=== PATIENT | female | born 1980 | race Caucasian/White ===

== ENCOUNTER 2018-07-08 15:45 | Emergency (ER) | payer OTHER ==
[~2018-07-08] VITALS: Ht 175.3 cm; Wt 108.9 kg
== END 2018-07-08 21:51 | disposition home or self-care (01) ==
LOC: ER 15:45
DX: S60.212A Contusion of left wrist, initial encounter (principal); S50.12XA Contusion of left forearm, initial encounter; W18.39XA Other fall on same level, initial encounter; Y93.89 Activity, other specified; Y92.098 Other place in other non-institutional residence as the place of occurrence of the external cause; Y99.8 Other external cause status